=== PATIENT | female | born 1970 | race African-American/Black ===

== ENCOUNTER 2025-01-06 20:15 | Emergency (ER) | payer OTHER, SELFPAY ==
[2025-01-06] VITALS (17 sets, daily range): BP systolic 163–178; BP diastolic 97–116; PULSE 73–91; TEMP 37.4; O2SAT 99–100; BMI 25.8
--- NOTE | 2025-01-06 20:33 | ECG_ITS ---
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 Measurements Intervals [place] Rate: 82 P: 210 RI: 154 QRS: 150 QRSD: 82 T: 128 QT: 372 QTc: 411 Interpretive Statements 1220 Ectopic atrial rhythm 3334 Anterolateral myocardial infarction, age undetermined 5120 Possible right ventricular hypertrophy 0101 Possible arm leads reversed, check lead requested, interpretation assumes no reversal 9150 abnormal ECG No previous ECG available for comparison Electronically Signed On 01-07-2025 6:32:40 EST by ZAKIA SIFUENTES M.D.
--- NOTE | 2025-01-06 20:36 | ED_ITS ---
Documented by User: JACKSON Pollard 01/06/25 22:00 HPI HPI - General Adult General Chief complaint: Nausea/Vomiting/Diarrhea Stated complaint: WEAKNESS, VOMITING, DIARRHEA Time Seen by Provider: 01/06/25 20:16 Source: patient Mode of arrival: Wheelchair History of Present Illness HPI narrative: Patient is a 54-year-old female who presents to the emergency department for epigastric abdominal pain associated with vomiting and diarrhea. Patient states for the last 20 years, she has intermittent episodes every 3 to 6 months regularly that last about 1 week where she has abdominal pain, vomiting and diarrhea. She states she typically is seen at [facility] emergency department. She states she has not had any vomiting or diarrhea for 3 days, however she continues to have epigastric pain. She was seen at [place] emergency department 3 days ago and given IV fluids, GI cocktail. She states she has had 5 previous C-sections and an appendectomy. No other abdominal kati geries. She has no low abdominal pain, flank pain or urinary symptoms. Related Data Home Medications ?Medication ?Instructions ?Recorded ?Confirmed omeprazole 40 mg capsule,delayed 40 mg PO DAILY 01/06/25 01/06/25 release Allergies Allergy/AdvReac Type Severity Reaction Status Date / Time No Known Drug Allergies Allergy Verified 01/06/25 20:30 Opioid HPI Opioid Management Most Recent Opioid Data: No Data to Display Review of Systems ROS Constitutional Denies: fever or chills Ears, nose, mouth, and throat Denies: throat pain or nasal congestion Cardiovascular Denies: chest pain Respiratory Denies: shortness of breath Gastrointestinal Reports: abdominal pain, nausea, vomiting and diarrhea Genitourinary Denies: painful urination Musculoskeletal Denies: back pain Neurological Denies: numbness in extremities or weakness in extremities Hematologic/Lymphatic Denies: easy bruising or easy bleeding PFSH PFSH Medical History (Updated 01/06/25 @ 22:48 by Nini Jaimes MD) Hypertension ?I10 - Essential (primary) hypertension (ICD-10) Surgical History (Updated 01/06/25 @ 20:32 by John Giles) Hx of appendectomy ?Z90.49 - Acquired absence of other specified parts of digestive tract (ICD- 10) Social History Little interest or pleasure in doing things: not at all Feeling down, depressed, or hopeless: not at all Exam Narrative Exam Narrative: Gen.: Awake, alert, in no distress Head: Normocephalic, atraumatic ENT: Moist mucous membranes Respiratory: No respiratory distress, lungs clear bilaterally Cardio: Regular rate and rhythm Gastrointestinal: Abdomen is soft, nondistended and tender to palpation in the epigastrium Extremities: Moves extremities equally Psych: Normal mood and affect Neuro: No focal neuro deficit Skin: Warm, dry, intact Constitutional Vital Signs, click to edit/add: Last Vital Signs Temp 99.4 F 01/06/25 20:23 Pulse 73 01/06/25 21:10 Resp 23 H 01/06/25 21:10 BP 163/116 H 01/06/25 20:23 Pulse Ox 99 01/06/25 20:23 O2 Del Method Room Air 01/06/25 20:23 Course Vital Signs Vital signs: Vital Signs Temperature 99.4 F 01/06/25 20:23 Pulse Rate 91 H 01/06/25 20:23 Respiratory Rate 18 01/06/25 20:23 Blood Pressure 163/116 H 01/06/25 20:23 Pulse Oximetry 99 01/06/25 20:23 Oxygen Delivery Method Room Air 01/06/25 20:23 Temperature 99.4 F 01/06/25 20:23 Pulse Rate 73 01/06/25 21:10 Respiratory Rate 23 H 01/06/25 21:10 Blood Pressure 163/116 H 01/06/25 20:23 Pulse Oximetry 99 01/06/25 20:23 Oxygen Delivery Method Room Air 01/06/25 20:23 Medical Decision Making MDM Narrative Medical decision making narrative: 2158: Patient medicated with IV fluids, Protonix and Zofran. Laboratory studies are stable, CT results are pending and case is turned over to attending physician at this time for disposition. Patient is hemodynamically stable in the ER SHARED APC VISIT, PHYSICIAN ATTESTATION: [id number] I performed a substantive part of the MDM during the patient?s E/M visit. I personally evaluated and examined the patient. I personally made or approved the documented management plan and acknowledge its risk of complications. Medical Records Medical records reviewed: Yes I reviewed the patient's medical records Lab Data Lab results reviewed: Yes I reviewed the patient's lab results Labs: Lab Results 01/06/25 Range/Units 20:45 WBC 8.1 (4.0-11.0) 10^3/uL RBC 4.74 (4.20-5.40) 10^6/uL Hgb 15.5 (12.0-16.0) g/dL Hct 45.8 (36.0-48.0) % MCV 96.6 (81.0-99.0) fL MCH 32.7 (26.7-34.0) pg MCHC 33.8 (29.9-35.2) g/dL RDW 11.6 (11.0-15.0) % Plt Count 293 (150-450) 10^3/uL MPV 9.6 (9.5-13.5) fL Neut % (Auto) 48.0 (43.0-75.0) % Lymph % (Auto) 41.1 (20.5-60.0) % Sanders % (Auto) 9.4 (1.7-12.0) % Eos % (Auto) 0.9 (0.9-7.0) % Baso % (Auto) 0.4 (0.2-2.0) % Neut # (Auto) 3.9 (1.4-6.5) 10^3/uL Lymph # (Auto) 3.3 (1.2-3.8) 10^3/uL Sanders # (Auto) 0.8 (0.3-0.8) 10^3/uL Eos # (Auto) 0.1 (0.0-0.7) 10^3/uL Baso # (Auto) 0.0 (0.0-0.1) 10^3/uL Abs Immat Gran (auto) 0.02 (0.00-0.03) 10^3/uL Imm/Tot Granulo (auto) 0.2 (0.0-0.5) % PT 12.4 H (9.0-11.6) sec INR 1.19 Sodium 139 (136-145) mmol/L Potassium 3.3 L (3.5-5.1) mmol/L Chloride 99 (98-107) mmol/L Carbon Dioxide 29.7 (21.0-32.0) mmol/L Anion Gap 13.6 BUN 17.0 (7.0-18.0) mg/dL Creatinine 1.09 H (0.55-1.02) mg/dL Est GFR ( Amer) >60 (>=60 mL/min/1.73m^2) Est GFR (Non-Af Amer) 53 L (>=60 mL/min/1.73m^2) BUN/Creatinine Ratio 15.6 Glucose 108 H (74-106) mg/dL Lactate 1.0 (0.4-2.0) mmol/L Calcium 9.6 (8.5-10.1) mg/dL Total Bilirubin 0.9 (0.2-1.0) mg/dL AST 10 L (15-37) U/L ALT 17 (14-59) U/L Alkaline Phosphatase 76 (46-116) U/L Troponin I High Sens 10.1 (4.0-51.3) pg/mL Total Protein 8.1 (6.4-8.2) g/dL Albumin 4.3 (3.4-5.0) g/dL Globulin 3.8 g/dL Albumin/Globulin Ratio 1.1 Lipase 68.0 (16.0-77.0) U/L ECG Data Attestation: I personally reviewed and interpreted this ECG as follows: (Rapid atrial rhythm at a rate of [address] elevation or ectopy. EKG reviewed by attending physician) Discharge Plan Discharge Chief Complaint: Nausea/Vomiting/Diarrhea Clinical Impression: Abdominal pain, Adrenal adenoma, Mesenteric adenitis, Gastritis Patient Disposition: Home, Self-Care Time of Disposition Decision: 22:48 Condition: Good Prescriptions / Home Meds: No Action omeprazole 40 mg capsule,delayed release(DR/EC) 40 mg PO DAILY Print Language: Bangladeshi Instructions: Gastritis (ED), Abdominal Pain (ED), Mesenteric Adenitis (ED) Referrals: Capri Novoa NP [Primary Care Provider] - 1 week Documented by User: Nini Jaimes MD 01/06/25 22:48 HPI HPI - General Adult General Chief complaint: Nausea/Vomiting/Diarrhea Stated complaint: WEAKNESS, VOMITING, DIARRHEA Time Seen by Provider: 01/06/25 20:16 Related Data Home Medications ?Medication ?Instructions ?Recorded ?Confirmed omeprazole 40 mg capsule,delayed 40 mg PO DAILY 01/06/25 01/06/25 release Allergies Allergy/AdvReac Type Severity Reaction Status Date / Time No Known Drug Allergies Allergy Verified 01/06/25 20:30 Opioid HPI Opioid Management Most Recent Opioid Data: No Data to Display PFSH PFSH Medical History (Updated 01/06/25 @ 22:48 by Nini Jaimes MD) Hypertension ?I10 - Essential (primary) hypertension (ICD-10) Surgical History (Updated 01/06/25 @ 20:32 by John Giles) Hx of appendectomy ?Z90.49 - Acquired absence of other specified parts of digestive tract (ICD- 10) Social History Little interest or pleasure in doing things: not at all Feeling down, depressed, or hopeless: not at all Exam Constitutional Vital Signs, click to edit/add: Last Vital Signs Temp 99.4 F 01/06/25 20:23 Pulse 73 01/06/25 21:10 Resp 23 H 01/06/25 21:10 BP 163/116 H 01/06/25 20:23 Pulse Ox 99 01/06/25 20:23 O2 Del Method Room Air 01/06/25 20:23 Course Vital Signs Vital signs: Vital Signs Temperature 99.4 F 01/06/25 20:23 Pulse Rate 91 H 01/06/25 20:23 Respiratory Rate 18 01/06/25 20:23 Blood Pressure 163/116 H 01/06/25 20:23 Pulse Oximetry 99 01/06/25 20:23 Oxygen Delivery Method Room Air 01/06/25 20:23 Temperature 99.4 F 01/06/25 20:23 Pulse Rate 73 01/06/25 21:10 Respiratory Rate 23 H 01/06/25 21:10 Blood Pressure 163/116 H 01/06/25 20:23 Pulse Oximetry 99 01/06/25 20:23 Oxygen Delivery Method Room Air 01/06/25 20:23 Medical Decision Making MDM Narrative Medical decision making narrative: 2158: Patient medicated with IV fluids, Protonix and Zofran. Laboratory studies are stable, CT results are pending and case is turned over to attending physician at this time for disposition. Patient is hemodynamically stable in the ER SHARED APC VISIT, PHYSICIAN ATTESTATION: [id number] I performed a substantive part of the MDM during the patient?s E/M visit. I personally evaluated and examined the patient. I personally made or approved the documented management plan and acknowledge its risk of complications. This patient was seen and evaluated in conjunction with the physician preschool teacher assistant. She presents for evaluation of epigastric abdominal pain which has been ongoing and intermittent for many years. She has also had some nausea and vomiting. Patient was seen and evaluated. She is resting comfortably. She has not had any additional vomiting after receiving medications in the emergency department. She was recently seen at [place] but states no imaging has been done. I reviewed her labs. She has normal white count and hemoglobin. Electrolytes are normal with a mildly low potassium at 3.3. Liver function tests and kidney function is normal. CT scan of the abdomen pelvis shows mild enteritis and mild mesenteric adenitis with no features of colitis or appendicitis. There is fatty infiltration of the liver with small right hepatic cyst. There is no pancreatitis or cholecystitis. Left adrenal adenoma was noted as well as level complex scoliosis affecting the lumbar spine. The results of the CT scan were discussed with the patient at length and she was given a copy to share with her family physician. She is tolerating ice chips at this time. She will be discharged home with a prescription for Bentyl, Zofran and Protonix. Lab Data Labs: Lab Results 01/06/25 Range/Units 20:45 WBC 8.1 (4.0-11.0) 10^3/uL RBC 4.74 (4.20-5.40) 10^6/uL Hgb 15.5 (12.0-16.0) g/dL Hct 45.8 (36.0-48.0) % MCV 96.6 (81.0-99.0) fL MCH 32.7 (26.7-34.0) pg MCHC 33.8 (29.9-35.2) g/dL RDW 11.6 (11.0-15.0) % Plt Count 293 (150-450) 10^3/uL MPV 9.6 (9.5-13.5) fL Neut % (Auto) 48.0 (43.0-75.0) % Lymph % (Auto) 41.1 (20.5-60.0) % Sanders % (Auto) 9.4 (1.7-12.0) % Eos % (Auto) 0.9 (0.9-7.0) % Baso % (Auto) 0.4 (0.2-2.0) % Neut # (Auto) 3.9 (1.4-6.5) 10^3/uL Lymph # (Auto) 3.3 (1.2-3.8) 10^3/uL Sanders # (Auto) 0.8 (0.3-0.8) 10^3/uL Eos # (Auto) 0.1 (0.0-0.7) 10^3/uL Baso # (Auto) 0.0 (0.0-0.1) 10^3/uL Abs Immat Gran (auto) 0.02 (0.00-0.03) 10^3/uL Imm/Tot Granulo (auto) 0.2 (0.0-0.5) % PT 12.4 H (9.0-11.6) sec INR 1.19 Sodium 139 (136-145) mmol/L Potassium 3.3 L (3.5-5.1) mmol/L Chloride 99 (98-107) mmol/L Carbon Dioxide 29.7 (21.0-32.0) mmol/L Anion Gap 13.6 BUN 17.0 (7.0-18.0) mg/dL Creatinine 1.09 H (0.55-1.02) mg/dL Est GFR ( Amer) >60 (>=60 mL/min/1.73m^2) Est GFR (Non-Af Amer) 53 L (>=60 mL/min/1.73m^2) BUN/Creatinine Ratio 15.6 Glucose 108 H (74-106) mg/dL Lactate 1.0 (0.4-2.0) mmol/L Calcium 9.6 (8.5-10.1) mg/dL Total Bilirubin 0.9 (0.2-1.0) mg/dL AST 10 L (15-37) U/L ALT 17 (14-59) U/L Alkaline Phosphatase 76 (46-116) U/L Troponin I High Sens 10.1 (4.0-51.3) pg/mL Total Protein 8.1 (6.4-8.2) g/dL Albumin 4.3 (3.4-5.0) g/dL Globulin 3.8 g/dL Albumin/Globulin Ratio 1.1 Lipase 68.0 (16.0-77.0) U/L Discharge Plan Discharge Chief Complaint: Nausea/Vomiting/Diarrhea Clinical Impression: Abdominal pain, Adrenal adenoma, Mesenteric adenitis, Gastritis Patient Disposition: Home, Self-Care Time of Disposition Decision: 22:48 Condition: Good Prescriptions / Home Meds: No Action omeprazole 40 mg capsule,delayed release(DR/EC) 40 mg PO DAILY Print Language: Bangladeshi Instructions: Gastritis (ED), Abdominal Pain (ED), Mesenteric Adenitis (ED) Referrals: Capri Novoa NP [Primary Care Provider] - 1 week
[2025-01-06] MEDS: 0.9 % SODIUM CHLORIDE 1,000 ML 999 ML IV (20:48)
[2025-01-06] MEDS: PANTOPRAZOLE SODIUM 40 MG VIAL IV (20:49)
[2025-01-06] MEDS: ONDANSETRON PF 4 MG/2 ML VIAL IV (20:54)
[2025-01-06 20:58] LABS: Basophils Percent Auto 0.4 % (0.2-2.0); Eosinophils Absolute Auto 0.1 10^3/uL (0.0-0.7); Eosinophils Percent Auto 0.9 % (0.9-7.0); Hematocrit 45.8 % (36.0-48.0); Hemoglobin 15.5 g/dL (12.0-16.0); Immature Granulocytes Abs Auto 0.02 10^3/uL (0.00-0.03); Immature Granulocytes Pct Auto 0.2 % (0.0-0.5); Lymphocytes Absolute Auto 3.3 10^3/uL (1.2-3.8); Lymphocytes Percent Auto 41.1 % (20.5-60.0); Mean Corpuscular HGB Conc 33.8 g/dL (29.9-35.2); Mean Corpuscular Hemoglobin 32.7 pg (26.7-34.0); Mean Corpuscular Volume 96.6 fL (81.0-99.0); Mean Platelet Volume 9.6 fL (9.5-13.5); Monocytes Absolute Auto 0.8 10^3/uL (0.3-0.8); Monocytes Percent Auto 9.4 % (1.7-12.0); Neutrophils Absolute Auto 3.9 10^3/uL (1.4-6.5); Platelet Count 293 10^3/uL (150-450); Red Blood Count 4.74 10^6/uL (4.20-5.40); Red Cell Distribution Width 11.6 % (11.0-15.0); White Blood Count 8.1 10^3/uL (4.0-11.0)
[2025-01-06 21:10] LABS: INR 1.19; Prothrombin Time 12.4 sec (9.0-11.6)
[2025-01-06 21:16] LABS: Alanine Aminotransferase 17 U/L (14-59); Albumin Globulin Ratio 1.1; Albumin Level 4.3 g/dL (3.4-5.0); Alkaline Phosphatase 76 U/L (46-116); Anion Gap 13.6; Aspartate Amino Transferase 10 U/L (15-37); BUN Creatinine Ratio 15.6; Bilirubin Total 0.9 mg/dL (0.2-1.0); Calcium 9.6 mg/dL (8.5-10.1); Carbon Dioxide 29.7 mmol/L (21.0-32.0); Chloride 99 mmol/L (98-107); Estimated GFR (African America >60 (>=60 mL/min/1.73m^2); Estimated GFR (Non-African Ame 53 (>=60 mL/min/1.73m^2); Globulin 3.8 g/dL; Glucose 108 mg/dL (74-106); Potassium 3.3 mmol/L (3.5-5.1); Sodium 139 mmol/L (136-145); Total Protein 8.1 g/dL (6.4-8.2); Troponin I High Sensitivity 10.1 pg/mL (4.0-51.3)
== END 2025-01-06 22:59 | disposition home or self-care (01) ==
PROVIDERS: Physician Assistant; Emergency Provider Emergency Medicine; PCP Nurse Practitioner Family
DX: K29.70 Gastritis, unspecified, without bleeding (principal); R10.13 Epigastric pain; I88.0 Nonspecific mesenteric lymphadenitis; D35.00 Benign neoplasm of unspecified adrenal gland; Z90.49 Acquired absence of other specified parts of digestive tract
CPT/HCPCS: 36415; 74177; 80053; 81001; 83605; 83690; 84484; 85025; 85610; 93005; 96361; 96374; 96375; 99285; J2405; Q9967